=== PATIENT | female | born 1990 | race Caucasian/White ===

== ENCOUNTER → 2018-07-28 14:20 | Outpatient (CLI) | payer OTHER, SELFPAY ==
[2018-07-28 13:31] VITALS: BMI 47.2
[2018-07-28 15:06] LABS: Absolute Lymphocyte Count 1.93 X10^3/ul (0.83-4.51); Absolute Neutrophil Count 8.9 X10^3/uL (2.0-7.7); Basophil# 0.03 X10^3/uL; Basophil% 0.3 % (0-1); Eosinophil# 0.08 X10^3/uL; Eosinophils% 0.7 % (0-5); Hematocrit 40.6 % (37-47); Hemoglobin 13.7 g/dl (12.0-15.0); Lymphocyte # 1.93 X10^3/ul (4.0); Lymphocyte % 16.2 % (19-41); Mean Corp Hgb Conc 33.7 g/gl (32-36); Mean Corpuscular Hgb 27.8 pg (27.0-32.0); Mean Corpuscular Volume 82.5 fL (81-99); Monocyte# 0.94 X10^3/uL; Monocyte% 7.9 % (0-10); Neutrophil # 8.86 X10^3/uL (2.7-7.7); Neutrophil % 74.5 % (47-70); Platelet Count 311 K/mm3 (150-450); RBC Distribution Width CV 12.9 % (11.6-14.6); RBC Distribution Width SD 39.1 fl (35.1-43.9); Red Blood Count 4.92 M/mm3 (4.2-5.4); White Blood Count 11.9 K/mm3 (4.4-11.0)
[2018-07-28 15:13] LABS: POSITIVE COUNT NO; POSITIVE DIFFERENTIAL NO; POSITIVE MORPHOLOGY NO
[2018-07-28 15:16] LABS: Glucose Challenge Gest 1H 50g 111 mg/dL (70-140)
[2018-07-28 17:13] LABS: HIV - WCH Non-Reactive (Nonreactive); Rubella IgG 380.4 IU/mL
[2018-07-28 21:21] LABS: Chlamydia Trachomatis by PCR Negative (Negative); Neisserai gonorrhoeae by PCR Negative (Negative); Probe Check PASS; Sample Adequacy Control PASS; Specimen Processing Control PASS
[2018-07-30 10:37] LABS: HEPATITIS B SURFACE AG Negative (Negative)
[2018-07-31 01:10] LABS: Rapid Plasmin Reagin (RPR) NONREACTIVE (NONREACTIVE)
[2018-07-31 11:40] LABS: HPV Reflexed? NOT INDICATED
--- OUTSIDE RECORDS SUMMARY | 2018-09-29 19:57 | XMS RPT_ITS ---
:1990 Author Organization OHIP Care Team Providers Name Role Phone Flor Plummer Attending Unavailable Flor Plummer Attending Unavailable Primay Care Physicia, No Primary Care Unavailable Claudia Guzmán Attending Unavailable PROBLEMS PROBLEMS DATE TYPE CONDITION / CODE ATTENDING STATUS SOURCE 07/28/2018 Unknown Z34.90 - Encounter Elian, Active [place] for supervision of [facility] , Hospital unspecified, Repository unspecified trimester / Z34.90(ICD-10) 07/28/2018 Unknown O99.213 - Obesity Elian, Active [place] complicating [facility], third Hospital trimester / Repository O99.213(ICD-10) 07/28/2018 Unknown Z3A.09 - 9 weeks Elian, Active [place] gestation of [facility] / Hospital Z3A.09(ICD-10) Repository 02/06/2018 Admitting Unknown / Claudia Guzmán Active [facility] diagnosis UNK(Unknown) M [facility] Repository PROCEDURES PROCEDURES No Procedure Records FoundRESULTS RESULTS CT/NG WCH BY PCR Collected: 07/28/2018 Status: F Source: ARSEN 6:54 PM [facility] REPOSITORY TYPE CODE TESTS RESULT OUT OF RANGE REFERENCE UNITS LAB L8200.2100 Negative Normal Chlam Negative Trac PCR LAB L8200.2200 Negative Normal NG by Negative PCR Performed By: #### L8200.2000 #### [facility] [address] [place], [address] Observed: 07/28/2018 Status: F Source: ARSEN CULTURE, URINE 6:54 PM [facility] REPOSITORY Urine Culture Below infection level. ORGANISM 1: Mixed Gram Positive Organisms [place] Count <1000 MIX CULTURE Mixed contaminants. Submit a new specimen if indicated. Performed By: #### M100.0650 #### [facility] [address] [place], [address] CBC W/DIFF, AUTOMATED Collected: 07/28/2018 Status: F Source: ARSEN 2:45 PM [facility] REPOSITORY TYPE CODE TESTS RESULT OUT OF RANGE REFERENCE UNITS LAB L100.1000 4.4-11.0 K/mm3 High WBC 11.9 LAB L100.1200 4.2-5.4 M/mm3 Normal RBC 4.92 LAB L100.1300 12.0-15.0 g/dl Normal HGB 13.7 LAB L100.1400 37-47 % Normal HCT 40.6 LAB L100.1500 81-99 fL Normal MCV 82.5 LAB L100.1600 27.0-32.0 pg Normal MCH 27.8 LAB L100.1700 32-36 g/gl Normal MCHC 33.7 LAB L100.1810 11.6-14.6 % Normal RDW CV 12.9 LAB L100.1820 35.1-43.9 fl Normal RDW SD 39.1 LAB L100.1900 150-450 K/mm3 Normal PLT 311 LAB L100.2000 6.2-12.0 fl Normal MPV 10.0 LAB L100.2100 47-70 % High NEUT% 74.5 LAB L100.2200 19-41 % Low LY% 16.2 LAB L100.2300 0-10 % Normal MONO% 7.9 LAB L100.2400 0-5 % Normal EO% 0.7 LAB L100.2500 0-1 % Normal BASO% 0.3 LAB L100.2550 0.0-0.9 % Normal IM GRAN % 0.400 Result Comment: IG% - Immature Granulocytes (promyelocytes, myelocytes and metamyelocytes) > 1% indicates that a LEFT SHIFT is Present. LAB L100.2620 2.0-7.7 X10 3/uL High Absolute Neut 8.9 LAB L100.2720 0.83-4.51 X10 3/ul Normal Absolute Lymph 1.93 Performed By: #### L100.0100 #### [facility] [address] [place], [address] GLUCOSE CHALLENGE GEST Collected: 07/28/2018 Status: F Source: LETART 1H 50G 2:45 PM [facility] REPOSITORY TYPE CODE TESTS RESULT OUT OF RANGE REFERENCE UNITS LAB L501.0250 70-140 mg/dL Normal GLU GEST 111 50g 1H Performed By: #### L501.0250 #### [facility] [address], [address] TYPE AND SCREEN Collected: 07/28/2018 Status: F Source: LETART 2:45 PM [facility] REPOSITORY Order Comment: Reason for Type AND Screen/Red Cells: TYPE CODE TESTS RESULT OUT OF RANGE REFERENCE UNITS LAB B10.0800 O Normal BLOOD TYPE GEL POSITIVE LAB B100.4000 Normal Antibody NEGATIVE Screen Performed By: #### B101.7450 #### [facility] [address] [place], [address] RUBELLA IGG Collected: 07/28/2018 Status: F Source: LETART 2:45 PM [facility] REPOSITORY TYPE CODE TESTS RESULT OUT OF RANGE REFERENCE UNITS LAB L509.4000 IU/mL Normal Rubella IgG 380.4 Result Comment: Antibody results Interpretation of Immune Status < 5 IU/ml Presumed Non-immune 5 - < 10 IU/ml Equivocal > or = 10 IU/ml Presumed Immune Performed By: #### L509.4000, L3890.6005 #### [facility] [address] [place], [address] HIV - WCH Collected: 07/28/2018 Status: F Source: LETART 2:45 PM [facility] REPOSITORY TYPE CODE TESTS RESULT OUT OF RANGE REFERENCE UNITS LAB L3890.6005 Nonreactive Normal HIV - WCH Non-Reactive Performed By: #### L509.4000, L3890.6005 #### [facility] [address] [place], [address] HEPATITIS B SURFACE Collected: 07/28/2018 Status: F Source: ARSEN AG 2:45 PM [facility] REPOSITORY TYPE CODE TESTS RESULT OUT OF RANGE REFERENCE UNITS LAB L3100.0400 Negative Normal HB Negative SURF AG Result Comment: Performed at: - [facility] [id number] Production Team Leader: Sohan Dolan PhD, Phone: [phone] Performed By: #### L3100.0390 #### [facility] (refer to report for specific site) refer to report for address and phone number RAPID PLASMIN REAGIN Collected: 07/28/2018 Status: F Source: ARSEN (RPR) 2:45 PM [facility] REPOSITORY TYPE CODE TESTS RESULT OUT OF REFERENCE UNITS RANGE LAB L700.5000 NONREACTIVE NONREACTIVE Normal RPR Performed By: #### L700.5000 #### [facility] [address] [place], [address] MULTIPLEX OPERATOR OFFICE VISIT Observed: 07/28/2018 Status: F Source: ARSEN REPORT 2:18 PM [facility] REPOSITORY [facility] [address] [place] [address] OFFICE VISIT Date of Service: 07/28/18 MR#: [id number] Acct: [id number] Name: RAMAN LUZ Rep #: [id number] : 1990 Provider: Flor Plummer MD Age/Sex: 27/F Location: [facility] Status: Signed Intake Vital Signs07/28/18 Height 5 ft 7 in 07/28/18 Weight: 302 lb 07/28/18 Body Mass Index (BMI) 47.2 07/28/18 Blood Pressure 130/90 H Intake Visit Reasons: NOB - LMP 05/26 Chief Complaint: NEW OB Vending Attendant Required: No Is patient in pain?: No Allergies No Known Allergies Allergy (Unverified 07/28/18 13:32) Medications vitamin#30 30 mg iron-10 mg iron-folic acid 1 mg- omg3 capsule cap PO cap 07/28/18 [History Confirmed 07/28/18] Last Menstral Period: 05/26/18 Zika: Zika virus screening: Negative : No PFSH PFSH Surgical History History of tonsillectomy (Acute) Family History Father Heart disease Hypertension Myocardial infarction Social History Smoking Status: Never smoker alcohol intake: never substance use type: does not use caffeine: Yes what type of physical activity do you participate in: walking seatbelt use: always do you feel safe at home: Yes additional social history: [employer] Patient is a [employer] Pregancy History 3 Elective abortions Hx Para 2 Spontaneous abortions Past Pregnancies Del. DateName GA/Weeks Outcome Route Bth WeighInfant GeLabor LgtAnesthesiDel LocatProvider FOB t n h a n HPI NOB - LMP 05/26: Details: RAMAN PRETTY is a 27 year old who presents for New OB visit. OB Visit Comments: Limited transvaginal ultrasound performed to confirm EDC and viability. CRL is 22.5 mm measuring 9w2d which is consistent with LMP. FHTs 185. no gross abnormalities noted. Menstrual History Last Menstral Period: 05/26/18 Reported LMP: definite Normal amount/duration: No On hormonal BC at conception: No hCG+: 06/27/18 Antepartum Record Genetic Screening: Congenital Heart Defect: Other, Neural Tube Defect: Other, Hemoglobinopathy Or Carrier: Other, Cystic Fibrosis: Other, Chromosome Abnormality: Other, Bart-Sachs: Other, Hemophilia: Other, Intellectual Disability/Autism: Other, Recurrent Loss/Stillbirth: Other, Other Structural Defect: Other, Other Genetic Disease: Other, Maternal Metabolic Disorder: Other Infection History: Live with someone with TB or Exposed to TB: No, Patient or Partner has history of Genital Herpes: No, Rash or Viral illness since last mentrual period: No, Prior GBS-Infected child: No, History of STD: No, HIV Infection: No, History of Hepatitis: No, Recent travel outside of [place]: No, Concern for Hep exposure: No, Varicella immune: Yes Medical History Medical History: Positive: Thyroid dysfunction ( resolved), Operations/hospitalizations, Negative: Diabetes, Hypertension, Heart disease, Auto-immune disorder, Kidney disease/UTI, Neurologic/epilepsy, Psychiatric, Depression/ depression, Hepatitis/liver disease, Varicosities/phlebitis, Trauma/domestic violence, History of blood transfusions, D (Rh) Sensitized, Pulmonary (e.g.,TB,Asthma), Seasonal allergies, Drug/latex allergies/reactions, Breast, Police Investigator surgery, Anesthetic complications, History of abnormal pap, Uterine anomaly/germán, Infertility, Anti-retroviral treatment, Relevant family history, Other ACOG First Trimester First Trimester: Desire for , Alcohol, Tobacco Cessation, Illicit/Recreational Drug/Substance Use, Intimate Partner Violence, Barriers to care, Unstable Housing, Communication Barriers, Environmental/Work Hazards, Anticipated Course of Care, Nurtrition and weight gain, Toxoplasmosis Precations, Use of Any medications, Sexual activity, Exercise, Dental Care, Sauna/Hot tub use, Seat Belt use, Childbirth classes/Hospital facilities, , Travel, Indications for US and Screening for Aneuploidy ROS Const Denies fever(s), Reports system reviewed and no additional complaints, except as docu, Reports fatigue Eyes Reports system reviewed and no additional complaints, except as docu ENT Reports system reviewed and no additional complaints, except as docu Card Denies chest pain, Denies shortness of breath Resp Reports system reviewed and no additional complaints, except as docu, Denies shortness of breath, Denies cough GI Reports nausea, Denies abdominal pain Reports system reviewed and no additional complaints, except as docu Musc Reports system reviewed and no additional complaints, except as docu Skin/Breast Reports system reviewed and no additional complaints, except as docu Neuro Yes system reviewed and no additional complaints, except as docu Psych Reports system reviewed and no additional complaints, except as docu Endo Reports fatigue, Reports system reviewed and no additional complaints, except as docu Exam Const General: healthy appearing, comfortable, no acute distress Orientation: alert [facility] Head: normal to inspection, atraumatic, normocephalic Ears: external ears normal, hearing grossly normal bilaterally Nose: nares normal, external nose normal Mouth: oral mucosae normal Teeth and gingiva: dentition normal Eyes General: appearance normal, both eyes and all related structures Neck Neck: no lymphadenopathy, supple, normal visual inspection Thyroid: thyroid normal Chest Chest palpation AND inspection: normal inspection of the chest Breast inspection: normal inspection of the breasts, normal inspection of the axillae Breast palpation: normal palpation of the breasts, normal palpation of the axillae Resp Effort AND Inspection: normal respiratory effort GI Inspection: normal to inspection Palpation: soft, no hepatosplenomegaly General: bladder normal to palpation External Female Exam: normal external appearance, normal appearance of the urethra Urethra: normal appearance of the urethra Speculum Exam - Vagina: normal appearance of the vagina, normal vaginal discharge Speculum Exam - Cervix: normal appearance of the cervix Bimanual Exam- Vagina AND Uterus: bladder normal to palpation, normal bimanual exam, uterus non-tender, other Bimanual Exam- Adnexa, other: adnexae non-tender Skin General: no rashes or lesions noted Neuro Motor: muscle tone normal throughout, no movement abnormalities noted Extrem General: normal to inspection, full ROM Assessment AND Plan Problems 1. Obesity affecting in third trimester O99.213 BMI 47, discussed nutrition and weight gain, 1 tm glucola, weekly nsts and q4 wk US after 32 weeks 2. 9 weeks gestation of Z3A.09 genetic- considering, ntd and carrier discussed. Plan Patient oriented to practice and discussed care expectations and screenings. OG book offered to patient. Discussed routine and specially indicated labs if needed- patient consents to testing. see problem list details for plan information. Optional screening including carrier screenings, neural tube defect screening, sequential screening, and NIPT screening offered to patient and patient chose: discussed Orders Orders: Supplemental Info AC book given and patient encouraged to read about nutrition, exercise, weight gain, and food avoidance in . Coding Level of Care Code OB Routine Diagnoses Obesity affecting in third trimester O99.213 Trimester: third trimester 9 weeks gestation of Z3A.09 Weeks of gestation: 9 weeks 07/28/18 1418 <Electronically signed by Flor Plummer MD> Date Flor Plummer MD Cosigner Signature: Date (if applicable) CC: PAP I-G W/RFX Collected: 07/28/2018 Status: F Source: ARSEN HRHPV-APTIMA 2:00 PM [facility] REPOSITORY Order Comment: CYTOLOGY INFORMATION: - CLINICAL INFORMATION: - DATE LMP/MENOPAUSE: 05/26/18 LMP - COLLECTION VIAL: Thin Prep Vial - INFORMATION SECURITY ANALYST SOURCE: CERVICAL - COLLECTION TECHNIQUE: CX BROOM ONLY Specimen Comment: [id number] Specimen Comment: Source.............Cervix Specimen Comment: LMP / Prev Treat...[id number]=[id number] Specimen Comment: Other.............. Specimen Comment: No. of containers..01 ThinPrep Vial TYPE CODE TESTS RESULT OUT OF RANGE REFERENCE UNITS LAB L7400.0800 . Normal DIAGN Comment Result Comment: NEGATIVE FOR INTRAEPITHELIAL LESION OR MALIGNANCY. LAB L7400.0900 . Normal ADEQ Comment Result Comment: Satisfactory for evaluation. Endocervical and/or squamous metaplastic cells (endocervical component) are present. LAB L7400.1400 . Normal PERFORM Comment Result Comment: Adore Crespo, Underground Repairer (ASCP) LAB L7400.2575 . Normal TEST METHOD Comment Result Comment: This liquid based ThinPrep(R) pap test was screened with the use of an image guided system. LAB L7400.2600 . Normal . COMM LAB L7400.2700 . Normal PAPSMR Comment Result Comment: The Pap smear is a screening test designed to aid in the detection of premalignant and malignant conditions of the uterine cervix. It is not a diagnostic procedure and should not be used as the sole means of detecting cervical cancer. Both false-positive and false-negative reports do occur. LAB L7400.2800 . Normal HPV RFLX Comment Result Comment: The HPV DNA reflex criteria were not met with this specimen result therefore, no HPV testing was performed. Performed at: - [facility] [id number] Production Team Leader: Aminta Patel MD, Phone: [phone] Performed By: #### L7400.0353 #### [facility] (refer to report for specific site) refer to report for address and phone number TSC Observed: 02/06/2018 Status: UNK Source: [facility] 5:48 PM [facility] REPOSITORY DATE OF SERVICE: 02/06/2018 A 27-year-old female with a chief complaint of an itching, watery right eye. The patient denies any pain or burning to the eye. Denies any blurry vision. Denied any crusting of the eye. Symptoms started 1 day ago. PHYSICAL EXAMINATION: Vital Signs: Stable. General: The patient is in no acute distress. HEENT: Right conjunctival injection without any crusting to the eyelids. No nasal turbinate hypertrophy. Oral mucosa is moist. Neck: No cervical lymphadenopathy. ASSESSMENT: Right allergic conjunctivitis. PLAN: Patanol 0.1% eyedrop, 1 drop to the right eye twice daily as needed for itching. Cool compresses to the eye. Follow up as needed. Claudia Guzmán MD /[id number] [facility] File#: [id number] Verified/Reviewed by 02/08/18 0936 [facility] PATIENT NAME: RAMAN LUZ [facility] MEDICAL REC #: [id number] [place] [address] [facility] PHYSICIAN ALLERGIES ALLERGIES DATE TYPE / CODE NAME / CODE REACTION SEVERITY SOURCE 07/28/2018 Drug No Known Unknown [facility] Allergy/4160 Allergies/F00 Hospital 29330(SNOMED [id number](RXNOR Repository CT) M) ENCOUNTERS ENCOUNTERS ADMIT/DISCHARGE ACCOUNT ADMITTING ENCOUNTER LOCATION SOURCE NUMBER CLASS 07/28/2018 [id number] Amb[place] [facility] ing:PAVLAB Repository 07/28/2018/ [id number] Ambulatory BMSBuilding:B [place] 9 8 MS.[facility] Hospital Repository 02/06/2018 [id number] [facility] [address] [facility] g:[facility] [place] PAYERS PAYERS ENCOUNTER GUARANTOR PAYER SUBSCRIBER SOURCE 07/28/2018 RAMAN Johnson Primary BLAINE Leger [id number] [facility] [address] [id number], [place] Number: Repository [id number]: 330 [id number] [phone] (HP) Date:8458-14-17[id number] [place] [phone]: 07/28/2018 Secondary NOT GIVENUNK [place] Insurance:SELF PAY [facility] Number: Effective Repository Date:2018-07-28 07/28/2018 RAMAN Johnson Primary BLAINE Leger [id number] Insurance:[facility]: [place] [id number] [id number], [place] Number: Repository [id number]: 330 [id number] [phone] () Date:7289-01-16LN [address] [place] [phone]: 07/28/2018 Secondary NOT GIVENUNK [place] Insurance:SELF PAY [facility] Number: Effective Repository Date:2018-07-28 02/06/2018 RAMAN Johnson [facility] [id number] Insurance:[facility] Number: Repository [place], [place] [id number] [id number]: 330) Date:4215-20-89YF [phone] () [address] [place] [phone]:
== END ==
PROVIDERS: Visit Provider Obstetrics & Gynecology
DX: Z34.90 Encounter for supervision of normal pregnancy, unspecified, unspecified trimester (principal); Z12.4 Encounter for screening for malignant neoplasm of cervix
CPT/HCPCS: 36415; 82950; 85025; 86592; 86703; 86762; 86850; 86900; 87086; 87088; 87340; 87491; 87591; 87624; 88175; G0145

== ENCOUNTER 2018-08-19 05:53 | Day surgery (SDC) | payer OTHER, SELFPAY ==
[2018-08-17 14:13] VITALS: BMI 47.2
--- NOTE | 2018-08-19 | POC_PTH ---
PATIENT: RAMAN LUZ LOC: [facility] [place] U#:[id number] AGE/SX: 27/F ROOM: RE08/19/[address]: Dr. Flor Plummer MD : 1990 BED: DIS: 08/19/2018 SPEC #: [id number] RECD: 08/19/18 09:21 STATUS: SUSU JACOB #: [id number] GONZALES: 08/19/18 00:[address]: Flor Plummer DEPT: SURGICAL PATHOLOGY RECD BY: Carlos Palafox ENTERED: 08/19/18 09:21 SP TYPE: PROD CONC OTHR DR: No Primary Care Phys Tissues: Product of conception, NOS Procedures: Surgery Specimen Level IV HEADER OPERATION: Dilation and curettage, suction PRE-OP DIAGNOSIS: Missed TISSUE SUBMITTED: Products of conception MICROSCOPIC DIAGNOSIS Endometrium, curettage: Chorionic villi, decidualized stroma and trophoblastic cells consistent with products of conception. AM:malcom 08/20/18 MICROSCOPIC DESCRIPTION Slides are reviewed. GROSS DESCRIPTION Received in fixative is one container labeled with the patient's name and designated products of conception. The specimen consists of multiple irregular fragments of reddish-pandey soft tissue that in aggregate measure 9.5 x 9 x 1.2 cm. parts are not grossly recognized. Hr Intern portions are submitted in one cassette. / AM:malcom 08/19/18 TC:5 CPT: 35543
[2018-08-19 06:28] LABS: Hematocrit 41.9 % (37-47); Hemoglobin 13.9 g/dl (12.0-15.0); Mean Corp Hgb Conc 33.2 g/gl (32-36); Mean Corpuscular Hgb 27.6 pg (27.0-32.0); Mean Corpuscular Volume 83.1 fL (81-99); Mean Platelet Vol. 10.1 fl (6.2-12.0); Platelet Count 259 K/mm3 (150-450); RBC Distribution Width CV 13.2 % (11.6-14.6); RBC Distribution Width SD 39.7 fl (35.1-43.9); Red Blood Count 5.04 M/mm3 (4.2-5.4); White Blood Count 7.4 K/mm3 (4.4-11.0)
[2018-08-19 06:29] LABS: Scan Indicated on CBC? Y/N NO
[2018-08-19 06:45] VITALS: BP 138/93; PULSE 81; RESP 16; TEMP 37.1; O2SAT 99; BMI 47.9
[2018-08-19] MEDS: Doxycycline 100 MG CAPSULE PO (06:54)
--- NOTE | 2018-08-19 07:40 | PCM.OPRPT ---
Problem List (1) Missed Status: Acute Report of Operation Date of Procedure: 08/19/18 Pre-Operative Diagnosis: missed Post-Operative Diagnosis: same Surgery/Procedure Performed:: suction dilation and curettage Type of Anesthesia:: Local MAC Special Medications: none Specimen's removed: poc Drains: none Fluids Replaced: crystalloid Description of Procedure: Patient was taken to the operating room and placed under MAC local anesthesia. She was prepped and draped in the normal sterile fashion the dorsal lithotomy position. Bladder was drained of clear urine and anterior lip of the cervix was grasped and the uterus sounded to 13 cm. Cervix was progressively dilated to allow passage of a 12 mm suction curette. Progressive passes were made removing the retained products of conception without complication. Sharp curettage confirmed complete removal of the retained products. All instruments were removed from the vagina and excellent hemostasis was noted and the patient was taken to recovery in stable condition. Grafts/Implants Used: none - Complications none - Admit VTE Documentation VTE Present on Admission: No VTE Mechan Device Prophylaxis: SCD's
--- NOTE | 2018-08-19 07:41 | DCINST_ITS ---
Discharge Diet: No Restrictions Discharge Activity: Return to Normal Activity, May Shower, May Take a Tub Bath Allergies/Adverse Reactions: Allergies No Known Allergies Allergy (Verified 08/18/18 15:08) Medications to take at Discharge vitamin#30 30 mg iron-10 mg iron-folic acid 1 mg-omg3 capsule 1 cap PO DAILY cap 07/28/18 Primary Care Physician: Care Physician,No Primary [Primary Care Provider] - Test Results: Test results from this visit will be discussed in further detail at your follow- up appointment, if applicable. Please Follow Up With: Flor Plummer MD - [phone]
[2018-08-19 08:04] VITALS: BP 131/85; BP 138/93; PULSE 80; RESP 16; TEMP 36.8; O2SAT 100
[2018-08-19 08:10] VITALS: BP 131/82; BP 138/93; PULSE 75; RESP 16; O2SAT 100
[2018-08-19 08:15] VITALS: BP 111/62; BP 138/93; PULSE 68; RESP 16; O2SAT 100
[2018-08-19 08:18] VITALS: BP 119/82; BP 138/93; PULSE 62; RESP 16; O2SAT 100
[2018-08-19 08:47] VITALS: BP 138/93
== END 2018-08-19 08:54 | disposition home or self-care (01) ==
LOC: SDC 05:54 → AC 05:54
PROVIDERS: Referring Provider Obstetrics & Gynecology; Visit Provider Obstetrics & Gynecology
PROC: (CPT 59820; principal; 2018-08-19 07:15)
DX: O02.1 Missed abortion (principal)
CPT/HCPCS: 01965; 59820; 85027; 86850; 86900; 88305; J7120; J2405

== ENCOUNTER 2018-08-24 02:33 | Emergency (ER) | payer OTHER, SELFPAY ==
[2018-08-24 02:34] VITALS: BP 157/97; PULSE 90; RESP 16; TEMP 37.1; O2SAT 98; BMI 46.9
--- NOTE | 2018-08-24 03:16 | US_ITS ---
HISTORY: Vaginal bleeding. Recent history of spontaneous miscarriage followed by DTC procedure on 08/19/2018 TECHNIQUE: Transabdominal and transvaginal pelvic ultrasound was performed. COMPARISON: None FINDINGS: The uterus is anteverted and is borderline enlarged measuring 11.2 x 5.9 x 7.7 cm in longitudinal, AP, and transverse dimensions, respectively. The uterine myometrium shows homogenous echotexture and is unremarkable. The endometrium is uniform and measures 0.2 cm in diameter. No retained products of conception are seen. No endometrial fluid collections seen. The right ovary is not visualized. Left ovary appears normal in size measuring 3.4 x 1.9 x 2.3 cm and shows normal vascular flow. A tiny free fluid within the posterior cul-de-sac. No additional findings are noted. US/Transvaginal Non- IMPRESSION: 1. No significant findings. No retained products of conception or endometrial thickening. 2. Tiny free fluid which may be physiologic. Otherwise negative exam. at 0580 Reported and signed by: Royer Ramon MD Electronically Signed: Royer Ramon, at 5:53 EST Tel , Service support ,
[2018-08-24] MEDS: 0.9% Normal Saline 1,000 ML 1000 ML IV (03:36)
[2018-08-24] MEDS: Ondansetron 4 MG/2 ML Vial IV (03:37)
[2018-08-24] MEDS: Ketorolac 30 MG/ML Syringe IV (03:37)
[2018-08-24 03:38] LABS: Absolute Neutrophil Count 8.6 X10^3/uL (2.0-7.7); Basophil# 0.04 X10^3/uL; Basophil% 0.3 % (0-1); Eosinophil# 0.25 X10^3/uL; Eosinophils% 2.1 % (0-5); Hematocrit 40.4 % (37-47); Hemoglobin 13.3 g/dl (12.0-15.0); Lymphocyte % 13.7 % (19-41); Mean Corp Hgb Conc 32.9 g/gl (32-36); Mean Corpuscular Hgb 27.8 pg (27.0-32.0); Mean Corpuscular Volume 84.5 fL (81-99); Mean Platelet Vol. 10.7 fl (6.2-12.0); Monocyte# 1.12 X10^3/uL; Monocyte% 9.6 % (0-10); Platelet Count 267 K/mm3 (150-450); RBC Distribution Width SD 39.9 fl (35.1-43.9); Red Blood Count 4.78 M/mm3 (4.2-5.4); White Blood Count 11.6 K/mm3 (4.4-11.0)
[2018-08-24 03:47] LABS: POSITIVE COUNT NO; POSITIVE DIFFERENTIAL NO; POSITIVE MORPHOLOGY NO
[2018-08-24 03:49] LABS: Color, Urine Amber (Yellow); Glucose, Dipstick Normal (Normal); Ketone-Dipstick 5 mg/dl (Negative); Leukocyte Esterase-Dipstick 100 /ul (Negative); Nitrite-Dipstick Positive (Negative); Occult Blood-Urine 250 /ul (Negative); Protein-Dipstick 30 mg/dl (Negative); Specific Gravity, Urine 1.025 (1.002-1.030); Urine Clarity Cloudy (Clear); Urine Urobilinogen 1 mg/dl (Normal)
[2018-08-24 03:55] LABS: Urine Bilirubin Dipstick 1 mg/dL (Negative)
[2018-08-24 03:57] LABS: Mucous, Urine 1+ /hpf (<or=2+); Red Blood Cells-Urine 25-50 SEEN /hpf (0-5); Squamous Epithelial Cells - UA 0-5 SEEN /hpf (5-10); White Blood Cells 5-10 SEEN /hpf (0-5)
[2018-08-24 03:58] LABS: Bacteria 1+ /hpf (None Seen)
[2018-08-24 03:59] LABS: Anion Gap 10 (5-15); BUN 12 mg/dL (7-18); Calcium,Total 8.3 mg/dL (8.5-10.1); Chloride 110 mmol/L (98-107); EST Glomerular Filtration Rate 105 mL/min (>60); Est Glom Filt Rate - Afr Amer 127 mL/min (>60); Estimated Creatinine Clearance 117.39 ml/min; Glucose 93 mg/dL (74-106); Potassium 3.7 mmol/L (3.5-5.1); Sodium Level 142 mmol/L (136-145)
[2018-08-24 04:34] VITALS: RESP 14
--- NOTE | 2018-08-24 06:32 | ED.DCSUM_ITS ---
- ER Visit Summary Date of Service: 08/24/18 Chief Complaint: Vaginal bleeding and pelvic pain History of Present Illness: The patient is a 27 F who presents with pelvic pain and vaginal bleeding. She had a D&C for an incomplete 5 days ago. She states that her bleeding suddenly became heavier and she went through with the pads in an hour tonight. Her pain was 10 out of 10 but has significantly improved and currently she only rates her pain as 4 out of 10. She also states that she was passing softball size clots. No fever chest pain shortness of breath lightheadedness dizziness. She reports nausea without vomiting. Physical Examination: Afebrile blood pressure 157/97 Heart regular rate and rhythm Lungs clear Abdomen soft nontender nondistended Pelvic examination shows mild to moderate bleeding small clots dime to quarter size Test Results: Labs notable for white red cell count 11.6. Hemoglobin normal. UA shows positive nitrites 5-10 WBCs, 25-50 RBCs. Urine culture was sent. Pelvic ultrasound shows no significant findings. There are no retained products. There is a tiny amount of free fluid which is likely normal. Emergency Department Course and Treatment: Patient was given Toradol here. On reevaluation she complains of only minimal to pain is 1 out of 10. I spoke to her surgeon. At this point no further intervention is necessary. Patient advised to follow-up in the office. She understands to return for new or worsening symptoms. Treatment Plan: [] Disposition: Discharge Impression: Vaginal bleeding after D&C This note was generated with [employer] dictation software. It may contain incorrect words, spelling, and punctuation that were not noted in review of the chart prior to signing ED Disposition - Plan for ED Patient: Referrals: Care Physician,No Primary [Primary Care Provider] -
--- NOTE | 2018-08-24 06:33 | DCINST.ED_ITS ---
ED Disposition - Plan for ED Patient: Referrals: Care Physician,No Primary [Primary Care Provider] - Flor Plummer MD [STAFF PHYSICIAN] - Additional Instructions: You were seen tonight for bleeding after a D&C. Your bleeding has significantly decreased. Your blood counts are normal. Your ultrasound was normal. Return for any new or worsening symptoms otherwise follow-up with your [facility] in the office.
[2018-08-24 06:56] VITALS: PULSE 74; RESP 16; O2SAT 100
== END 2018-08-24 06:56 | disposition home or self-care (01) ==
PROVIDERS: Emergency Provider Emergency Medicine
DX: O03.1 Delayed or excessive hemorrhage following incomplete spontaneous abortion (principal); Z98.890 Other specified postprocedural states
CPT/HCPCS: 76830; 80048; 81001; 85025; 87077; 87086; 87088; 93976; 96361; 96374; 96375; 99283; J7030; A4216; J2405

== ENCOUNTER → 2018-12-15 15:57 | Outpatient (CLI) | payer OTHER, SELFPAY ==
[2018-12-15 15:35] VITALS: BMI 46.9
[2018-12-15 17:07] LABS: Absolute Lymphocyte Count 1.96 X10^3/ul (0.83-4.51); Absolute Neutrophil Count 7.1 X10^3/uL (2.0-7.7); Basophil# 0.02 X10^3/uL; Basophil% 0.2 % (0-1); Eosinophil# 0.15 X10^3/uL; Eosinophils% 1.5 % (0-5); Hematocrit 38.5 % (37-47); Hemoglobin 13.1 g/dl (12.0-15.0); Lymphocyte # 1.96 X10^3/ul (4.0); Lymphocyte % 19.2 % (19-41); Mean Corpuscular Hgb 26.9 pg (27.0-32.0); Mean Corpuscular Volume 79.1 fL (81-99); Mean Platelet Vol. 10.9 fl (6.2-12.0); Monocyte# 0.98 X10^3/uL; Monocyte% 9.6 % (0-10); Neutrophil # 7.05 X10^3/uL (2.7-7.7); Neutrophil % 69.2 % (47-70); POSITIVE COUNT NO; POSITIVE DIFFERENTIAL NO; POSITIVE MORPHOLOGY NO; Platelet Count 284 K/mm3 (150-450); RBC Distribution Width CV 13.5 % (11.6-14.6); RBC Distribution Width SD 38.3 fl (35.1-43.9); Red Blood Count 4.87 M/mm3 (4.2-5.4); White Blood Count 10.2 K/mm3 (4.4-11.0)
[2018-12-15 17:11] LABS: Protein, Urine (Random) 13.8 mg/dL (<11.9); Protein:Creat Ratio 52 mg/g CRE (0-200)
[2018-12-15 17:39] LABS: ALB/GLOB Ratio 0.8 RATIO (0.9-2.4); AST(SGOT) 33 U/L (15-37); Alanine Aminotransfer ALT/SGPT 33 U/L (13-56); Albumin, Serum 3.2 g/dL (3.2-5.0); Alkaline Phosphatase 54 U/L (45-117); Anion Gap 9 (5-15); BUN 9 mg/dL (7-18); BUN/Creat Ratio 14.2 RATIO (10-20); Calcium,Total 8.3 mg/dL (8.5-10.1); Chloride 106 mmol/L (98-107); Creatinine, Serum 0.63 mg/dL (0.55-1.02); EST Glomerular Filtration Rate 119 mL/min (>60); Est Glom Filt Rate - Afr Amer 143 mL/min (>60); Globulin 3.8 g/dL (2.2-4.2); Glucose 93 mg/dL (74-106); Glucose Challenge Gest 1H 50g 93 mg/dL (70-140); Potassium 3.4 mmol/L (3.5-5.1); Sodium Level 139 mmol/L (136-145)
[2018-12-15 18:24] LABS: HIV - WCH Non-Reactive (Nonreactive); Rubella IgG > 500.0 IU/mL
[2018-12-15 20:53] LABS: Chlamydia Trachomatis by PCR Negative (Negative); Neisserai gonorrhoeae by PCR Negative (Negative); Probe Check PASS; Sample Adequacy Control PASS; Specimen Processing Control PASS
[2018-12-17 09:53] LABS: HEPATITIS B SURFACE AG Negative (Negative)
[2018-12-18 01:43] LABS: Rapid Plasmin Reagin (RPR) NONREACTIVE (NONREACTIVE)
== END ==
PROVIDERS: Nurse Practitioner Women's Health; Referring Provider Obstetrics & Gynecology; Visit Provider Obstetrics & Gynecology
DX: Z34.90 Encounter for supervision of normal pregnancy, unspecified, unspecified trimester (principal)
CPT/HCPCS: 36415; 80053; 82570; 82950; 84156; 85025; 86592; 86703; 86762; 86850; 86900; 87086; 87088; 87340; 87491; 87591

== ENCOUNTER → 2019-01-01 11:09 | Outpatient (CLI) | payer OTHER, SELFPAY ==
[2019-01-01 10:53] VITALS: BMI 46.9
--- NOTE | 2019-01-01 11:42 | EKG12_ITS ---
Test Reason : HYPERTENSON Blood Pressure : / mmHG Vent. Rate : 074 BPM Atrial Rate : 074 BPM P-R Int : 158 ms QRS Dur : 086 ms QT Int : 392 ms P-R-T Axes : 042 015 015 degrees QTc Int : 435 ms Normal sinus rhythm with sinus arrhythmia Normal ECG Confirmed by FRANCISCO JAVIER ROBERTSON, JOHN ([id number]), mapping editor DOYLE JARRETT ([id number]) on 01/04/2019 2:00:14 PM Referred By: Radha Hendrix Confirmed By:JOHN MCINTYRE MD
[2019-01-01 11:44] LABS: Absolute Neutrophil Count 7.1 X10^3/uL (2.0-7.7); Basophil# 0.03 X10^3/uL; Basophil% 0.3 % (0-1); Eosinophil# 0.08 X10^3/uL; Eosinophils% 0.8 % (0-5); Hemoglobin 14.4 g/dl (12.0-15.0); Lymphocyte % 15.7 % (19-41); Mean Corp Hgb Conc 34.3 g/gl (32-36); Mean Corpuscular Hgb 27.3 pg (27.0-32.0); Mean Corpuscular Volume 79.7 fL (81-99); Mean Platelet Vol. 9.9 fl (6.2-12.0); Monocyte# 0.82 X10^3/uL; Monocyte% 8.6 % (0-10); Neutrophil # 7.07 X10^3/uL (2.7-7.7); Neutrophil % 74.3 % (47-70); Platelet Count 288 K/mm3 (150-450); RBC Distribution Width CV 13.2 % (11.6-14.6); RBC Distribution Width SD 37.5 fl (35.1-43.9); Red Blood Count 5.27 M/mm3 (4.2-5.4); White Blood Count 9.5 K/mm3 (4.4-11.0)
[2019-01-01 11:45] LABS: POSITIVE COUNT NO; POSITIVE DIFFERENTIAL NO; POSITIVE MORPHOLOGY NO
[2019-01-01 12:14] LABS: ALB/GLOB Ratio 0.9 RATIO (0.9-2.4); AST(SGOT) 16 U/L (15-37); Alanine Aminotransfer ALT/SGPT 19 U/L (13-56); Albumin, Serum 3.4 g/dL (3.2-5.0); Alkaline Phosphatase 58 U/L (45-117); Anion Gap 6 (5-15); BUN 7 mg/dL (7-18); Calcium,Total 8.7 mg/dL (8.5-10.1); Chloride 109 mmol/L (98-107); Creatinine, Serum 0.58 mg/dL (0.55-1.02); EST Glomerular Filtration Rate 131 mL/min (>60); Est Glom Filt Rate - Afr Amer 159 mL/min (>60); Globulin 3.7 g/dL (2.2-4.2); Glucose 87 mg/dL (74-106); Potassium 3.7 mmol/L (3.5-5.1); Protein, Total 7.1 g/dL (6.4-8.2); Sodium Level 137 mmol/L (136-145)
[2019-01-01 12:50] LABS: Protein:Creat Ratio 119 mg/g CRE (0-200)
== END ==
PROVIDERS: Referring Provider Nurse Practitioner Women's Health; Visit Provider Nurse Practitioner Women's Health
DX: Z34.81 Encounter for supervision of other normal pregnancy, first trimester (principal); O16.1 Unspecified maternal hypertension, first trimester
CPT/HCPCS: 36415; 80053; 82570; 84156; 85025; 93005

== ENCOUNTER → 2019-01-18 15:07 | Outpatient (CLI) | payer OTHER, SELFPAY ==
[2019-01-08 14:04] VITALS: BMI 46.9
== END ==
PROVIDERS: Referring Provider Nurse Practitioner Women's Health; Visit Provider Nurse Practitioner Women's Health
DX: Z34.81 Encounter for supervision of other normal pregnancy, first trimester (principal)
CPT/HCPCS: 36415; 86850

== ENCOUNTER → 2019-03-01 13:55 | Outpatient (CLI) | payer OTHER, SELFPAY ==
[2019-03-01 13:52] VITALS: BMI 46.9
== END ==
PROVIDERS: Referring Provider Obstetrics & Gynecology; Visit Provider Obstetrics & Gynecology
DX: Z36.9 Encounter for antenatal screening, unspecified (principal)
CPT/HCPCS: 36415

== ENCOUNTER → 2019-04-19 15:51 | Outpatient (CLI) | payer OTHER, SELFPAY ==
[2019-04-19 09:39] VITALS: BMI 46.9
== END ==
PROVIDERS: Referring Provider Nurse Practitioner Women's Health; Visit Provider Nurse Practitioner Women's Health
DX: O26.899 Other specified pregnancy related conditions, unspecified trimester (principal); R30.0 Dysuria
CPT/HCPCS: 87086; 87088; 87186

== ENCOUNTER → 2019-04-26 10:37 | Outpatient (CLI) | payer OTHER, SELFPAY ==
[2019-04-26 10:30] VITALS: BMI 46.9
[2019-04-26 11:42] LABS: Absolute Neutrophil Count 7.5 X10^3/uL (2.0-7.7); Basophil# 0.04 X10^3/uL; Basophil% 0.4 % (0-1); Eosinophil# 0.16 X10^3/uL; Eosinophils% 1.5 % (0-5); Hematocrit 33.3 % (37-47); Hemoglobin 11.2 g/dL (12.0-15.0); Lymphocyte % 14.5 % (19-41); Mean Corp Hgb Conc 33.6 g/dL (32-36); Mean Corpuscular Hgb 27.6 pg (27.0-32.0); Mean Platelet Vol. 10.2 fl (6.2-12.0); Monocyte# 1.02 X10^3/uL; Monocyte% 9.8 % (0-10); NRBC Flagged by Analyzer 0 % (0-5); Neutrophil % 72.4 % (47-70); Platelet Count 322 K/mm3 (150-450); RBC Distribution Width CV 12.6 % (11.6-14.6); RBC Distribution Width SD 37.6 fl (35.1-43.9); Red Blood Count 4.06 M/mm3 (4.2-5.4); White Blood Count 10.4 K/mm3 (4.4-11.0)
[2019-04-26 11:49] LABS: Glucose Challenge Gest 1H 50g 106 mg/dL (70-140)
== END ==
PROVIDERS: Referring Provider Nurse Practitioner Women's Health; Visit Provider Nurse Practitioner Women's Health
DX: Z34.80 Encounter for supervision of other normal pregnancy, unspecified trimester (principal)
CPT/HCPCS: 36415; 82950; 85025

== ENCOUNTER → 2019-05-10 14:10 | Outpatient (CLI) | payer OTHER, SELFPAY ==
[2019-05-10 10:58] VITALS: BMI 46.9
== END ==
PROVIDERS: Visit Provider Obstetrics & Gynecology
DX: O23.42 Unspecified infection of urinary tract in pregnancy, second trimester (principal); Z3A.00 Weeks of gestation of pregnancy not specified
CPT/HCPCS: 87086; 87088

== ENCOUNTER 2019-05-31 09:40 | Outpatient (CLI) | payer OTHER, SELFPAY ==
[2019-05-24 10:33] VITALS: BMI 46.9
[2019-05-31 10:04] VITALS: BMI 46.0
--- NOTE | 2019-06-01 08:52 | OB.TRI.PN ---
Progress Notes Date of Service: 06/01/19 Progress Note: nst for routine visit for cHTN FHT: 140 Moderate variability reactive no decelerations category I tracing [place]: no regular Contractions Assessment and plan chronic hypertension continue weekly testing - Problem List (1) Chronic hypertension affecting Status: Chronic Comment: growth us monthly and weekly BPP after 32 weeks, baseline preE labs wnl, EKG, home bp daily, labetalol 100mg bid. EKG normal Multi Select Codes - Urinary/Genital Urinary/Genital CPT Codes: 71727-88 non-stress test Interp
== END 2019-05-31 10:35 | disposition home or self-care (01) ==
LOC: WPOUT 09:50 → WP 09:50
PROVIDERS: Referring Provider Obstetrics & Gynecology; Visit Provider Obstetrics & Gynecology
DX: O10.919 Unspecified pre-existing hypertension complicating pregnancy, unspecified trimester (principal); Z3A.00 Weeks of gestation of pregnancy not specified
CPT/HCPCS: 59025

== ENCOUNTER → 2019-06-21 15:54 | Outpatient (CLI) | payer OTHER, SELFPAY ==
[2019-06-21 10:03] VITALS: BMI 46.0
--- NOTE | 2019-06-21 15:55 | US_ITS ---
STUDY: SECOND AND THIRD TRIMESTER OBSTETRICAL ULTRASOUND - LIMITED REASON FOR EXAM: Female, 28 years old SAMEER only LMP: 10/17/2018 PRIOR ULTRASOUND: None. TECHNIQUE: Transabdominal TECHNICAL QUALITY: Adequate. FINDINGS: There is a single intrauterine fetus. The fetus is in a breech presentation. There is demonstrated cardiac activity with a heart rate of 170 bpm. There is a normal amniotic fluid volume. The largest amniotic fluid pocket measures 6.2 cm. The amniotic fluid index (SAMEER) is 10.6 cm. The placenta is posterior in location and is not low lying. There are Grade 1 placental changes. The cervix is not visualized. Age by LMP: 35 weeks, 2 days. EDUARDO by LMP: 07/24/2019. US/OB Limited (No Biometrics) IMPRESSION: Single live intrauterine gestation, breech position, amniotic fluid index of 10.6. Age by LMP: 35 weeks, 2 days. EDUARDO by LMP: 07/24/2019. Electronically Signed: Jamil Martin MD at 19:25 EST , Service support ,
== END ==
PROVIDERS: Referring Provider Obstetrics & Gynecology; Visit Provider Obstetrics & Gynecology
DX: O36.8330 Maternal care for abnormalities of the fetal heart rate or rhythm, third trimester, not applicable or unspecified (principal); Z3A.35 35 weeks gestation of pregnancy
CPT/HCPCS: 76815

== ENCOUNTER → 2019-06-28 18:15 | Outpatient (CLI) | payer OTHER, SELFPAY ==
[2019-06-28 09:48] VITALS: BMI 46.0
== END ==
PROVIDERS: Visit Provider Obstetrics & Gynecology
DX: Z34.80 Encounter for supervision of other normal pregnancy, unspecified trimester (principal); O10.919 Unspecified pre-existing hypertension complicating pregnancy, unspecified trimester; O99.210 Obesity complicating pregnancy, unspecified trimester; E66.9 Obesity, unspecified; Z3A.00 Weeks of gestation of pregnancy not specified
CPT/HCPCS: 87081

== ENCOUNTER 2019-07-13 19:00 | Inpatient (IN) | payer OTHER, SELFPAY ==
[2019-07-05 10:03] VITALS: BMI 46.0
--- NOTE | 2019-07-13 18:57 | HP.PCM_ITS ---
- Problem List (1) Contraception management Status: Acute Qualifiers: Comment: Wants PP BTO (2) Obesity affecting Status: Acute Qualifiers: (3) Status: Acute Qualifiers: Comment: Declines carrier screen. nl NIPT. AFP normal . nl anatomy scan, SAMEER normal (4) Supervision of other normal Status: Acute Comment: PRR EDUARDO 07/24/19 boy [facility] Amy Formanen. Spouse Donovan (5) UTI in Status: Acute Qualifiers: Comment: 04/19 Rx macrobid. Repeat culture done (6) Variable heart rate decelerations, antepartum Status: Acute Comment: BPP (7) Chronic hypertension affecting Status: Chronic Comment: growth us monthly and weekly BPP after 32 weeks, baseline preE labs wnl, EKG, home bp daily, labetalol 100mg bid. EKG normal History and Physical Date of Admission: 07/13/19 Intake Vital Signs 07/05/19 BMI 46.0 07/05/19 Height 5 ft 7 in 07/05/19 Weight: 295 lb 6 oz 07/05/19 BMI 46.2 07/05/19 BP 136/76 H 03/29/19 BMI 46.9 Intake Visit Reasons: 38 week ob/nst Responder Required: No Is patient in pain?: No Allergies No Known Allergies Allergy (Verified 07/05/19 10:00) Medications vitamin#30 30 mg iron-10 mg iron-folic acid 1 mg-omg3 capsule 1 cap PO DAILY cap 07/28/18 [History Confirmed 07/05/19] miscellaneous medical supply See Rx Instructions .ROUTE .MEDSUPPLY #1 ea 01/01/19 [Rx Confirmed 07/05/19] comp.stocking,knee,long,medium See Rx Instructions .ROUTE .MEDSUPPLY #1 ea 03/01/19 [Rx Confirmed 07/05/19] labetalol 100 mg tablet 100 mg PO BID #60 tab 04/09/19 [Rx Confirmed 07/05/19] aspirin 81 mg tablet,delayed release 81 mg PO DAILY 06/11/19 [History Confirmed 07/05/19] Last Menstral Period: 10/17/18 Zika: Zika virus screening: Negative : No PFSH PFSH Surgical History H/O dilation and curettage (Acute) History of tonsillectomy (Acute) Family History Father Heart disease Hypertension Myocardial infarction Social History (Updated 07/05/19 @ 11:44 by Flor Plummer MD) Smoking Status: Never smoker alcohol intake: never substance use type: does not use caffeine: Yes what type of physical activity do you participate in: walking seatbelt use: always do you feel safe at home: Yes additional social history: Donovan- [employer] Patient is a [employer] Pregancy History 4 Elective abortions Hx Para 2 Spontaneous abortions 1 Hx # Term Pregnancies Ectopic pregnancies Hx # Pregnancies Multiple births # of living children 2 Past Pregnancies Del. Date Name GA/Weeks Outcome Route Bth Weight Gen Labor Lgth Anesthesia Del Locatn Provider FOB Unknown 2010 Cadi 39 live - full term NS VD Female epidural [facility] Unknown Unknown 2011 Mustapha 39 live - full term NS VD Male epidural [facility] Unknown HPI 38 week ob/nst: Details: RAMAN LUZ is a 28 year old who presents for routine OB visit. she is planning an IOL at 38 weeks for cHTN. OB Visit EDUARDO Calculator Estimated Delivery Date Method Current WG Current Estimate 07/24/19 LMP (Certain) 37w 2d Expected Delivery Route/Plan Labor Preferences- labor support person: Donovan pain management options preferred: epidural if needed cut cord/dad catch: yes : yes PP control planned: BTO discussed possible routes of delivery and associated risks: [] special requests: [] Specific Issue/Plans flu vaccine: declines tdap vaccine: given rhogam: NA LARC form signed: yes movement and labor precautions reviewed. Problem list reviewed and updated with the most current plan of care details and appropriate orders placed. Relevant counseling for the gestational age provided. Continue routine care and follow up unless otherwise noted in visit notes/problem list details Initial Weight: Not Recorded Date EGA Weight BP Urine Prot Glucose FHR FuHt Pres Mov CTX Dilation Effaced St Visit Note 01/01/19 10w 6d 294 lb 144/94 Negative Negative 163 Active IUP on US. No VB, LOF. 01/08/19 11w 6d 295 lb 132/78 Negative Negative 146 1 week BP check after start of labetalol . States home BPs WNL. Live active IUP on US. 02/01/19 15w 2d 290 lb 114/80 160 no vb lof decreased appetite, reviewed BPs and good 03/01/19 19w 2d 297 lb 130/80 Trace Negative 150 no vb cramping having more swelling 03/29/19 23w 2d 293 lb 126/78 Negative Negative 150 24 no vb cramping 04/26/19 27w 2d 295 lb 6 oz 126/80 Negative Negative 145 27 No VB, LOF. Good FM. 05/10/19 29w 2d 295 lb 6 oz 138/86 Negative Negative 150 33 no vb lof good fm no reg ctx. discussed IOL 38 weeks pref on 07/14 and pptl the next day 05/24/19 31w 2d 295 lb 4 oz 130/82 Negative Negative 140 33 no vb lof good fm no regular ctx 06/11/19 33w 6d 293 lb 130/78 Negative Negative 140 no vb lof good fm 06/18/19 34w 6d 295 lb 4 oz 131/82 Negative Negative 140 35 no vb lof good fm no reg ctx nl bps at home growth us next week 06/21/19 35w 2d 296 lb 124/84 recommend SAMEER today due to small mild variable, growth us on jul 08. 06/28/19 36w 2d 295 lb 122/81 Negative Negative 145 37 1 -4 MFM BPP and Growth US today:02/11; 59%. Good FM. Reactive NST. No CTX, LOF, VB Notes Visit Date: 06/28/19 ??No visit notes to display Visit Date: 06/21/19 ??recommend SAMEER today due to small mild variable, growth us on jul 08. ??Flor Plummer MD on 06/21/19 Visit Date: 06/18/19 ??no vb lof good fm no reg ctx nl bps at home growth us next week ??Flor Plummer MD on 06/18/19 Visit Date: 06/11/19 ??no vb lof good fm ??Flor Plummer MD on 06/11/19 Visit Date: 05/24/19 ??no vb lof good fm no regular ctx ??Flor Plummer MD on 05/24/19 Visit Date: 05/10/19 ??no vb lof good fm no reg ctx. discussed IOL 38 weeks pref on 07/14 and pptl the next day ??Flor Plummer MD on 05/10/19 Visit Date: 04/26/19 ??No VB, LOF. Good FM. ??OLLIE Cherry on 04/26/19 Visit Date: 03/29/19 ??no vb cramping ??Flor Plummer MD on 03/29/19 Visit Date: 03/01/19 ??no vb cramping having more swelling ??Flor Plummer MD on 03/01/19 Visit Date: 02/01/19 ??no vb lof decreased appetite, reviewed BPs and good ??Flor Plummer MD on 02/01/19 Visit Date: 01/08/19 ??1 week BP check after start of labetalol. States home BPs WNL. Live active IUP on US. ??OLLIE Cherry on 01/08/19 Visit Date: 01/01/19 ??Active IUP on US. No VB, LOF. ??OLLIE Cherry on 01/01/19 ACOG First Trimester First Trimester: Desire for , Alcohol, Tobacco Cessation, Illicit/Recreational Drug/Substance Use, Intimate Partner Violence, Barriers to care, Unstable Housing, Communication Barriers, Environmental/Work Hazards, Anticipated Course of Care, Toxoplasmosis Precations, Use of Any medications, Sexual activity, Exercise, Dental Care, Sauna/Hot tub use, Seat Belt use, Childbirth classes/Hospital facilities, , Travel, Indications for US and Screening for Aneuploidy Second Trimester Second Trimester: Signs and Symptoms of Labor, Selecting a care provider, Reproductive Life Planning, Care Planning, Tobacco Cessation, Depression/Anxiety and Intimate Partner Violence Third Trimester Third Trimester: Pain Management Plans, Labor support person(s), Immediate Po stpartum Larc, Movement Monitoring and Infant Feeding Yes ; discussed Trial of Labor after Counseling or discussed Circumcision preference Diagnostics Diagnostics Diagnostics Glucose 1 Hr 50 gm 106 mg/dL (70-140) 04/26/19 Hgb 11.2 g/dL (12.0-15.0) L 04/26/19 Hct 33.3 % (37-47) L 04/26/19 Details: HIV: Urine Culture: Sequential Screen: NIPT Screen: ROS Const Reports system reviewed and no additional complaints, except as docu Card Reports system reviewed and no additional complaints, except as docu Resp Reports system reviewed and no additional complaints, except as docu GI Reports system reviewed and no additional complaints, except as docu, Reports nausea Reports system reviewed and no additional complaints, except as docu Musc Reports system reviewed and no additional complaints, except as docu Exam Const General: cooperative, healthy appearing, comfortable, anxious HENMT Head: normal to inspection Nose: external nose normal Face and sinus: normal facial exam Neck Neck: normal visual inspection, full ROM, no lymphadenopathy Thyroid: thyroid normal Chest Chest palpation & inspection: normal inspection of the chest Resp Effort & Inspection: normal respiratory effort GI Inspection: normal to inspection Palpation: soft, other (gravid uterus) Other: infant vertex and appropriate size for gestational age Other: Cervical Exam: Extrem General: pedal edema Office Procedures OB NST Non-Stress Test Indications for Monitoring: Yes hypertension Heart Rate Baseline: 140 Heart Rate Variability: moderate Movement: Present Heart Rate Accelerations: Present Decelerations: Absent Contractions: Absent Impression: Yes Reactive Non-Stress Test Category 1 Results POC Urinalysis 2 Dip (Clinic) Office Urine Glucose Negative Last Edit by Koki Patel on 07/05/19 10:03 Office Urine Protein Negative Last Edit by Koki Patel on 07/05/19 10:03 Assessment & Plan Problems 1. Obesity affecting in third trimester O99.213 2. Encounter for other general counseling or advice on contraception Z30.09 Wants PP BTO 3. Urinary tract infection in mother during second trimester of O23.42 10 Rx macrobid. Repeat culture done 4. Chronic hypertension affecting O10.919 growth us monthly and weekly BPP after 32 weeks, baseline preE labs wnl, EKG, home bp daily, labetalol 100mg bid. EKG normal 5. 37 weeks gestation of Z3A.37 Declines carrier screen. nl NIPT. AFP normal . nl anatomy scan, SAMEER normal 6. Supervision of other normal Z34.80 PRR EDUARDO 07/24/19 boy Mustapha Larry. Spouse Donovan Plan plan IOL fb/pitocin epidural PRN gbs neg Orders Orders: POC Urinalysis 2 Dip (Clinic) Today OB NST Today O99.213 Coding Level of Care Code OB Routine Diagnoses Obesity affecting in third trimester O99.213 ??Trimester: third trimester Encounter for other general counseling or advice on contraception Z30.09 ??Contraceptive encounter type: other general counseling and advice Urinary tract infection in mother during second trimester of O23.42 ??Trimester: second trimester Chronic hypertension affecting O10.919 37 weeks gestation of Z3A.37 ??Weeks of gestation: 37 weeks Supervision of other normal Z34.80 Additional Codes Non-Stress Test (67612) UPDATE- I have seen the patient and performed any clinically relevant updates to the history and physical exam. Flor Plummer MD
[2019-07-13 19:33] VITALS: BMI 47.5
[2019-07-13] MEDS: Lactated Ringers 1,000 ML 50 ML IV (19:35)
[2019-07-13 19:48] LABS: Absolute Lymphocyte Count 1.98 X10^3/uL (0.83-4.51); Absolute Neutrophil Count 10.3 X10^3/uL (2.0-7.7); Basophil# 0.03 X10^3/uL; Basophil% 0.2 % (0-1); Eosinophil# 0.12 X10^3/uL; Eosinophils% 0.9 % (0-5); Hematocrit 35.5 % (37-47); Hemoglobin 11.5 g/dL (12.0-15.0); Lymphocyte # 1.98 X10^3/ul (4.0); Lymphocyte % 14.2 % (19-41); Mean Corp Hgb Conc 32.4 g/dL (32-36); Mean Corpuscular Hgb 25.2 pg (27.0-32.0); Mean Corpuscular Volume 77.7 fL (81-99); Mean Platelet Vol. 10.5 fl (6.2-12.0); Monocyte# 1.32 X10^3/uL; Monocyte% 9.5 % (0-10); NRBC Flagged by Analyzer 0 % (0-5); Neutrophil # 10.33 X10^3/uL (2.7-7.7); Neutrophil % 74.1 % (47-70); Platelet Count 336 K/mm3 (150-450); RBC Distribution Width CV 13.2 % (11.6-14.6); RBC Distribution Width SD 37.2 fl (35.1-43.9); Red Blood Count 4.57 M/mm3 (4.2-5.4); White Blood Count 13.9 K/mm3 (4.4-11.0)
[2019-07-13] MEDS: 0.9% Normal Saline Single 100 ML IV.SOLN. IY (20:17)
[2019-07-13] MEDS: Oxytocin 30 units/NS 500 ml 30 UNITS/500 ML IV.SOLN IV (20:42)
[2019-07-14] MEDS: Lactated Ringers 500 ML 999 ML IV (03:00)
[2019-07-14] MEDS: fentaNYL-bupivacaine (epidural) 100 ML BAG EPIDURAL ×2 (04:07→08:45)
[2019-07-14] MEDS: Lactated Ringers 1,000 ML 200 ML IV ×2 (05:45→10:49)
[2019-07-14] MEDS: Amnioinfusion- 0.9% NS 1,000 ML IV.SOLN. 500 ML INTRA-UTER (09:15)
[2019-07-14] MEDS: Oxytocin 30 units/NS 500 ml 30 UNITS/500 ML IV.SOLN 334 UNITS IV (11:20)
--- NOTE | 2019-07-14 11:26 | OP.PCM_ITS ---
Problem List (1) Contraception management Status: Acute Qualifiers: Comment: Wants PP BTO (2) Obesity affecting Status: Acute Qualifiers: (3) Status: Acute Qualifiers: Comment: Declines carrier screen. nl NIPT. AFP normal . nl anatomy scan, SAMEER normal (4) Supervision of other normal Status: Acute Comment: PRR EDUARDO 07/24/19 boy Mustapha Larry. Spouse Donovan (5) UTI in Status: Acute Qualifiers: Comment: 04/19 Rx macrobid. Repeat culture done (6) Variable heart rate decelerations, antepartum Status: Acute Comment: BPP (7) Chronic hypertension affecting Status: Chronic Comment: growth us monthly and weekly BPP after 32 weeks, baseline preE labs wnl, EKG, home bp daily, labetalol 100mg bid. EKG normal Vaginal Delivery Maternal Presentation: Medically Indicated Induction iol chtn Amniotic Fluid Description: Clear Date of Procedure: 07/14/19 Pre-Operative Diagnosis: ial Post-Operative Diagnosis: same Surgery/ Procedure Performed: Spontaneous Vaginal Delivery Type of Anesthesia: Epidural Description of Procedure: Patient began pushing and delivered the head in the KHUSHBOO presentation. The head was delivered atraumatically . The anterior and posterior shoulders delivered without complication followed by the rest of the and the was placed on the maternal abdomen. Delayed cord clamping was employed for approximately 60 seconds. Cord was clamped and cut and gentle traction was ricardo lied to the cord and the placenta delivered spontaneously immediately following it was noted to be intact with three-vessel cord. The perineum and vagina were inspected and noted to have no laceration. EBL was 100 cc. Patient and infant tolerated delivery well. Presentation: KHUSHBOO Placental Delivery Description: Spontaneous Cord Vessel Description: 3 Vessels Cord Entanglement: None Estimated Blood Loss: 100 A gender: Male Episiotomy Description: None Laceration: None Medications given after delivery: IV Pitocin Complications: None Multi Select Codes - Urinary/Genital Urinary/Genital CPT Codes: 59671 Vaginal Delivery [facility]
[2019-07-14 16:45] VITALS: BP 128/66; PULSE 102; RESP 18; TEMP 36.8
--- NOTE | 2019-07-14 17:13 | NURSING ---
Pt stated she needed to go to the bathroom. RN to reassess uterine involution after pt voids in toilet.
[2019-07-14] MEDS: Acetaminophen 500 MG Tablet 1000 MG PO (19:59)
[2019-07-14 20:00] VITALS: BP 144/86; PULSE 93; RESP 16; TEMP 36.6
[2019-07-14] MEDS: Labetalol 100 MG Tablet PO (21:36)
[2019-07-15] VITALS (13 sets, daily range): BP systolic 123–149; BP diastolic 57–94; PULSE 65–90; RESP 16–20; TEMP 36.3–37.3; O2SAT 97–99
[2019-07-15] MEDS: Acetaminophen 500 MG Tablet 1000 MG PO (03:40)
--- NOTE | 2019-07-15 07:40 | PN.OBGYN_ITS ---
Subjective: Doing well, no complaints.Pain controlled. Denies CP, SOB, N,V. Ambulating well. Lochia moderate, going well. NPO for BTO today. - Physical Exam Vitals/I&O's: Vital Signs Temp Pulse Resp BP 97.9 F 85 16 123/76 H 07/15/19 04:00 07/15/19 04:00 07/15/19 04:00 07/15/19 04:00 Oxygen Delivery Method Room Air Weight: 303 lb 9.224 oz Body Mass Index (BMI) 47.5 Intake and Output for Last 24 Hours 07/13/19 07/14/19 07/15/19 23:59 23:59 23:59 Intake Total 7.57 / 7.57 3708.04 / 3708.04 Output Total 1400 / 1400 Balance 7.57 / 7.57 2308.04 / 2308.04 General: Alert, Oriented x3 Abdomen: Soft, Non Tender, Non-Distended, - - FF below U Current Medications Acetaminophen (Tylenol) 1,000 mg PO Q8H PRN PRN PRN Reason: Pain Score 1-3/10 Last Admin: 07/15/19 03:40 Dose: 1,000 mg Documented by: Bisacodyl (Dulcolax) 10 mg RECTAL UD PRN PRN Reason: If no BM Dibucaine (Dibucaine) 1 applic TOPICAL TID PRN PRN; Protocol PRN Reason: Discomfort Hydrocortisone (Hytone) 1 applic TOPICAL TID PRN PRN; Protocol PRN Reason: Discomfort Labetalol HCl (Trandate) 100 mg PO BID [facility] Last Admin: 07/14/19 21:36 Dose: 100 mg Documented by: Ondansetron HCl (Zofran) 4 mg IV Q4H PRN PRN PRN Reason: Nausea Oxycodone HCl (Oxyir) 5 - 10 mg PO Q4H PRN PRN PRN Reason: Pain Score 4-10/10 Multivit/Folic Acid/Iron (Prenatabs Fa) 1 tablet PO DAILY@1200 ZOLTAN Senna/Docusate Sodium (Senokot-S, Kathy-Colace) 1 - 2 tablet PO DAILY PRN PRN PRN Reason: Constipation Simethicone (Mylicon) 80 mg PO HS PRN PRN Reason: Indigestion/Stomach pain Sodium Chloride () 5 - 15 ml IV UD PRN PRN Reason: SALINE FLUSH Medical Necessity - Tobacco Use Smoking Status: Never smoker Assessment/Plan All Active Problems (Last Reviewed 07/05/19 @ 10:00 by Koki Patel) Variable heart rate decelerations, antepartum (Acute) Obesity affecting (Acute) Contraception management (Acute) UTI in (Acute) (Acute) Supervision of other normal (Acute) Supervision of normal (Resolved) s/p PPD # 1 1. routine post delivery care 2. breast feeding- support given 3. rh positive 4. rubella immune
[2019-07-15] MEDS: Labetalol 100 MG Tablet PO ×2 (09:36→22:19)
[2019-07-15] MEDS: Lactated Ringers 1,000 ML 125 ML IV (11:00)
[2019-07-15] MEDS: 0.9% Saline Lock 10 ML Syringe IV ×2 (13:01→15:32)
--- NOTE | 2019-07-15 13:14 | OP.PCM_ITS ---
Problem List (1) Contraception management Status: Acute Qualifiers: Comment: Wants PP BTO (2) Obesity affecting Status: Acute Qualifiers: (3) Status: Acute Qualifiers: Comment: Declines carrier screen. nl NIPT. AFP normal . nl anatomy scan, SAMEER normal (4) Supervision of other normal Status: Acute Comment: PRR EDUARDO 07/24/19 boy Dexter MaganaalvinMustapha. Spouse Donovan (5) UTI in Status: Acute Qualifiers: Comment: 04/19 Rx macrobid. Repeat culture done (6) Variable heart rate decelerations, antepartum Status: Acute Comment: BPP (7) Chronic hypertension affecting Status: Chronic Comment: growth us monthly and weekly BPP after 32 weeks, baseline preE labs wnl, EKG, home bp daily, labetalol 100mg bid. EKG normal Report of Operation Date of Procedure: 07/15/19 Pre-Operative Diagnosis: sterilization Post-Operative Diagnosis: same Surgery/Procedure Performed:: bilateral tubal ligation filshie clips Description of Surgical Findings:: nl tubes medical billing manager: Rosa Gay Type of Anesthesia:: General Special Medications: none Specimen's removed: none Drains: none Estimated Blood Loss (mL): 10 Fluids Replaced: crystalloid Description of Procedure: Patient was taken to the operating room and epidural anesthesia was found to be adequate. Patient was placed in the dorsal supine position was prepped and draped in normal sterile fashion. Borjas catheter was used to drain the bladder. Infra umbilical incision was made with a scalpel after injecting with marcaine and carried through the underlying layer of the fascia with a scalpel fascial incision was extended bilaterally with Berger scissors and bowel packed away and the right fallopian tube identified confirmed to be fallopian tube by following it out to the fimbria and a Filshie clip was applied in the mid interstitial portion of the fallopian tube noting to completely transect the tube. This was repeated on the left side where the tube was identified and followed out to the fimbria and confirmed to be fallopian tube and then the mid interstitial portion of the tube was completely transected with the Filshie clip. Excellent hemostasis was noted. Fascia was closed with 0 Vicryl and skin closed with 3-0 Monocryl. No complications. Patient was taken recovery in stable condition. Grafts/Implants Used: filshie clips x 2 - Complications none - Admit VTE Documentation VTE Present on Admission: No VTE Mechan Device Prophylaxis: SCD's Multi Select Codes - Urinary/Genital Urinary/Genital CPT Codes: 42451 PPTL
[2019-07-15] MEDS: Bupivacaine 0.25% 30 ML Vial (13:32)
[2019-07-15] MEDS: oxyCODONE 5 MG Tablet PO ×3 (14:57→21:08)
[2019-07-15] MEDS: Prenatal Vits Tablet 1 TABLET PO (14:57)
--- NOTE | 2019-07-16 00:31 | DCINST_ITS ---
Discharge Diet: No Restrictions Discharge Activity: Return to Normal Activity, May not drive while taking narcotic pain medications., May Shower May resume sexual activity in: 4-6 weeks Call your doctor if your incision/area has: Continuous Slow Oozing, Sudden Increased Bleeding, Increased Pain/ Swelling, Increased Redness, Foul Smelling Discharge Additional Instructions: If you experience any of the following, contact your healthcare provider. * Bleeding that soaks a pad every hour for 2 hours * Fever 100.4 or higher * Unrelieved incision or abdominal pain * Swelling, redness, discharge or bleeding from your incision or episiotomy site * Your incision begins to separate * Problems urinating (including inability to urinate or burning while urinating). * Visual changes * Severe headache * Flu-like symptoms * Pain or redness in one of both of your breasts * Pain, warmth, tenderness or swelling in your legs, especially the calf area * Frequent nausea and vomiting * Symptoms of depression or anxiety If you experience any of the following, call 911 or go to the nearest Emergency Room. * Chest pain * Problems breathing * Seizure activity * Partial or complete paralysis of a body part, slurred speech, weakness or drooping of the face, or a sudden inability to walk or hold your balance Allergies/Adverse Reactions: Allergies No Known Allergies Allergy (Verified 07/13/19 19:53) Medications to take at Discharge vitamin#30 30 mg iron-10 mg iron-folic acid 1 mg-omg3 capsule 1 cap PO DAILY cap 07/28/18 Labetalol HCl 100 mg PO BID 07/13/19 Please Follow Up With: Flor Plummer MD - [phone] When: Call to make an appointment with your doctor in 6 weeks. If you had elevated Blood pressure or 4th degree laceration you will need to be seen in 2 weeks. Primary Care Physician: Care Physician,No Primary [Primary Care Provider] - Test Results: Test results from this visit will be discussed in further detail at your follow- up appointment, if applicable.
--- NOTE | 2019-07-16 00:31 | PCM.DCVAG ---
Discharge Diet: No Restrictions Discharge Activity: Return to Normal Activity, May not drive while taking narcotic pain medications., May Shower May resume sexual activity in: 4-6 weeks Call your doctor if your incision/area has: Continuous Slow Oozing, Sudden Increased Bleeding, Increased Pain/ Swelling, Increased Redness, Foul Smelling Discharge Additional Instructions: If you experience any of the following, contact your healthcare provider. Bleeding that soaks a pad every hour for 2 hours Fever 100.4 or higher Unrelieved incision or abdominal pain Swelling, redness, discharge or bleeding from your incision or episiotomy site Your incision begins to separate Problems urinating (including inability to urinate or burning while urinating). Visual changes Severe headache Flu-like symptoms Pain or redness in one of both of your breasts Pain, warmth, tenderness or swelling in your legs, especially the calf area Frequent nausea and vomiting Symptoms of depression or anxiety If you experience any of the following, call 911 or go to the nearest Emergency Room. Chest pain Problems breathing Seizure activity Partial or complete paralysis of a body part, slurred speech, weakness or drooping of the face, or a sudden inability to walk or hold your balance Allergies/Adverse Reactions: Allergies No Known Allergies Allergy (Verified 07/13/19 19:53) Medications to take at Discharge vitamin#30 30 mg iron-10 mg iron-folic acid 1 mg-omg3 capsule 1 cap PO DAILY cap 07/28/18 Labetalol HCl 100 mg PO BID 07/13/19 Please Follow Up With: Flor Plummer MD - [phone] When: Call to make an appointment with your doctor in 6 weeks. If you had elevated Blood pressure or 4th degree laceration you will need to be seen in 2 weeks. Primary Care Physician: Care Physician,No Primary [Primary Care Provider] - Test Results: Test results from this visit will be discussed in further detail at your follow-up appointment, if applicable.
[2019-07-16 01:16] VITALS: BP 134/77; PULSE 76; RESP 16; TEMP -13.4; TEMP 7.8
[2019-07-16] MEDS: oxyCODONE 5 MG Tablet PO ×2 (03:27→08:11)
[2019-07-16 07:49] VITALS: BP 130/84; PULSE 74; RESP 18; TEMP 36.8; O2SAT 100
--- NOTE | 2019-07-16 09:07 | PCM.PN.OB ---
Subjective: doing well no complaints pain controlled no CP SOB N V ambulating well tolerating po lochia moderate, going well - Physical Exam Vitals/I&O's: Vital Signs Temp Pulse Resp BP Pulse Ox 98.3 F 74 18 130/84 H 100 07/16/19 07:49 07/16/19 07:49 07/16/19 07:49 07/16/19 07:49 07/16/19 07:49 Oxygen Delivery Method Room Air Weight: 303 lb 9.224 oz Body Mass Index (BMI) 47.5 Intake and Output for Last 24 Hours 07/14/19 07/15/19 07/16/19 23:59 23:59 23:59 Intake Total 3708.04 / 3708.04 854.17 / 854.17 Output Total 1400 / 1400 250 / 250 Balance 2308.04 / 2308.04 604.17 / 604.17 General: Alert, Oriented x3 Current Medications Acetaminophen (Tylenol) 1,000 mg PO Q8H PRN PRN PRN Reason: Pain Score 1-310 Last Admin: 07/15/19 03:40 Dose: 1,000 mg Documented by: Bisacodyl (Dulcolax) 10 mg RECTAL UD PRN PRN Reason: If no BM Dibucaine (Dibucaine) 1 applic TOPICAL TID PRN PRN; Protocol PRN Reason: Discomfort Hydrocortisone (Hytone) 1 applic TOPICAL TID PRN PRN; Protocol PRN Reason: Discomfort Labetalol HCl (Trandate) 100 mg PO BID [facility] Last Admin: 07/15/19 22:19 Dose: 100 mg Documented by: Ondansetron HCl (Zofran) 4 mg IV Q4H PRN PRN PRN Reason: Nausea Oxycodone HCl (Oxyir) 5 - 10 mg PO Q4H PRN PRN PRN Reason: Pain Score 4-10/10 Last Admin: 07/16/19 08:11 Dose: 5 mg Documented by: Multivit/Folic Acid/Iron (Prenatabs Fa) 1 tablet PO DAILY@1200 ZOLTAN Last Admin: 07/15/19 14:57 Dose: 1 tablet Documented by: Senna/Docusate Sodium (Senokot-S, Kathy-Colace) 1 - 2 tablet PO DAILY PRN PRN PRN Reason: Constipation Simethicone (Mylicon) 80 mg PO [facility] PRN PRN Reason: Indigestion/Stomach pain Sodium Chloride () 5 - 15 ml IV UD PRN PRN Reason: SALINE FLUSH Last Admin: 07/15/19 15:32 Dose: 10 ml Documented by: Medical Necessity - Tobacco Use Smoking Status: Never smoker Assessment/Plan All Active Problems (Last Reviewed 07/05/19 @ 10:00 by Koki Patel) Variable heart rate decelerations, antepartum (Acute) Obesity affecting (Acute) Contraception management (Acute) UTI in (Acute) (Acute) Supervision of other normal (Acute) Supervision of normal (Resolved) s/p PPD # 2 1. routine post delivery care 2. breast feeding- support given 3. rh positive 4. rubella immune
[2019-07-16] MEDS: Labetalol 100 MG Tablet PO (10:04)
== END 2019-07-16 12:10 | disposition home or self-care (01) | DRG 798 ==
PROVIDERS: Admitting Provider Obstetrics & Gynecology; Referring Provider Obstetrics & Gynecology; Visit Provider Obstetrics & Gynecology
PROC: 0UL70ZZ Occlusion of Bilateral Fallopian Tubes, Open Approach (ICD-10-PCS; principal; 2019-07-15 11:45)
DX: O10.92 Unspecified pre-existing hypertension complicating childbirth (principal); Z37.0 Single live birth; O99.214 Obesity complicating childbirth; E66.9 Obesity, unspecified; Z30.2 Encounter for sterilization; Z3A.37 37 weeks gestation of pregnancy
CPT/HCPCS: 59025; 59050; 85025; 86850; 86900; 86901; 99218; J7030; J7120; A4216; G0378